=== PATIENT | female | born 1995 | race Caucasian/White ===

== ENCOUNTER 2020-06-11 12:36 | Emergency (ER) | payer OTHER ==
[~2020-06-11] VITALS: Ht 165.1 cm; Wt 68.8 kg
[2020-06-11 12:40] VITALS: BP 137/74
[2020-06-11] MEDS ORDERED: PROPARACAINE OPHTH 0.5%, 15ML LEFTEYE ONE (13:00)
[2020-06-11] MEDS ORDERED: FLUORESCEIN OPHTHALMIC 1 MG STRIP LEFTEYE ONE (13:00)
[2020-06-11] MEDS ORDERED: PROPARACAINE OPHTH 0.5%, 15ML ONE (14:03)
[2020-06-11] MEDS ORDERED: FLUORESCEIN OPHTHALMIC 1 MG STRIP ONE (14:03)
--- NOTE | 2020-06-11 15:09 | NUR ---
Patient given discharge instructions and Rx, they have confirmed that they understand the instructions. Patient ambulatory with steady gait.
== END 2020-06-11 15:18 | disposition home or self-care (01) ==
LOC: ED 14:38
DX: H20.012 Primary iridocyclitis, left eye (principal); H53.142 Visual discomfort, left eye
CPT/HCPCS: 99283